=== PATIENT | female | born 1960 ===

== ENCOUNTER 2017-07-05 09:58 | Outpatient (CLI) | payer OTHER ==
[~2017-07-05] VITALS: Ht 160 cm; Wt 63.5 kg
== END 2017-07-05 10:10 | disposition home or self-care (01) ==
LOC: OFIC 805 09:58
DX: R42 Dizziness and giddiness (principal); R07.0 Pain in throat

== ENCOUNTER 2017-08-16 10:50 | Outpatient (CLI) | payer OTHER ==
[~2017-08-16] VITALS: Ht 152.4 cm; Wt 63.0 kg
== END 2017-08-16 11:10 | disposition home or self-care (01) ==
LOC: OFIC 805 10:50
DX: R42 Dizziness and giddiness (principal); R07.0 Pain in throat; R09.82 Postnasal drip

== ENCOUNTER 2017-09-26 11:15 | Outpatient (CLI) | payer OTHER ==
[~2017-09-26] VITALS: Ht 152.4 cm; Wt 63.5 kg
== END 2017-09-26 11:30 | disposition home or self-care (01) ==
LOC: OFIC 805 11:15
DX: R42 Dizziness and giddiness (principal); H93.13 Tinnitus, bilateral; R09.81 Nasal congestion